=== PATIENT | male | born 1980 | race Caucasian/White ===

== ENCOUNTER 2018-01-03 23:59 | Emergency (ER) | payer BC ==
[~2018-01-03] VITALS: Ht 177.8 cm; Wt 93.0 kg
[~2018-01-03 23:59] MED LIST: DICL50TA3 PO; MAGICPED SWISH-SWAL; PERI0.126 SWISH-SPIT
[2018-01-04 00:34] VITALS: BP 140/89; PULSE 86; RESP 20; TEMP 98.5; O2SAT 98
[2018-01-04] MEDS ORDERED: MORPHINE SULFATE 4 MG/ML INJ IV PUSH ONE (01:00)
[2018-01-04] MEDS ORDERED: ONDANSETRON HCL 4 MG/2 ML VIAL IVP ONE (01:00)
[2018-01-04] MEDS ORDERED: SODIUM CHLORIDE 0.9% FLUSH 10 ML FLUSH IV FLUSH PRN (01:00)
[2018-01-04] MEDS ORDERED: KETOROLAC TROMETHAMINE 30 MG/ML (IVP) VIAL IVP ONE (01:00)
[2018-01-04 01:47] LABS: BASOPHIL # 0.1 TH/MM3 (0-0.2); BASOPHIL % 0.8 % (0.0-2.0); EOSINOPHIL # 0.2 TH/MM3 (0-0.4); EOSINOPHIL % 2.3 % (0.0-4.0); HEMATOCRIT 45.7 % (39.0-51.0); HEMOGLOBIN 15.4 GM/DL (13.0-17.0); LYMPH % 30.4 % (9.0-44.0); MEAN CELL VOLUME 81.5 FL (80.0-100.0); MEAN CORPUSCULAR HEMOGLOBIN 27.4 PG (27.0-34.0); MEAN CORPUSCULAR HGB CONC 33.6 % (32.0-36.0); MEAN PLATELET VOLUME 9.3 FL (7.0-11.0); MONO % 6.8 % (0.0-8.0); MONOCYTE # 0.5 TH/MM3 (0-0.9); NEUT % 59.7 % (16.0-70.0); PLATELET COUNT 160 TH/MM3 (150-450); RED BLOOD COUNT 5.61 MIL/MM3 (4.50-5.90); WHITE BLOOD COUNT 6.7 TH/MM3 (4.0-11.0)
[2018-01-04 02:01] LABS: ALBUMIN 3.9 GM/DL (3.4-5.0); ALT (GPT) 54 U/L (12-78); AST (GOT) 22 U/L (15-37); BICARBONATE 26.4 MEQ/L (21.0-32.0); BLOOD UREA NITROGEN 11 MG/DL (7-18); CALCIUM 8.5 MG/DL (8.5-10.1); CHLORIDE 109 MEQ/L (98-107); CREATININE 1.17 MG/DL (0.60-1.30); GLOMERULAR FILTRATION RATE 70 ML/MIN (>89); GLUCOSE,RANDOM 86 MG/DL (74-106); SODIUM (NA) 140 MEQ/L (136-145)
[2018-01-04 02:03] LABS: ALKALINE PHOSPHATASE 93 U/L (45-117); TOTAL BILIRUBIN ADULT 0.4 MG/DL (0.2-1.0)
--- NOTE | 2018-01-04 03:12 | RADRPT ---
EXAM DATE/TIME: 01/04/2018 02:26 [place] COMPARISON: No previous studies available for comparison. INDICATIONS : Right upper quadrant pain. MEDICAL HISTORY : Heart murmur. SURGICAL HISTORY : Gastrostomy. ENCOUNTER: Initial ACUITY: 1 day PAIN SCORE: 7/10 LOCATION: Right upper quadrant MEASUREMENTS: LIVER: 14.5 cm length COMMON DUCT: 7 mm RIGHT KIDNEY: 10.5 x 4.7 x 3.8 cm FINDINGS: Ultrasound of the upper abdomen demonstrates increased echogenicity of the liver compatible with fatt y infiltration or hepatocellular disease. The gallbladder is normal without wall thickening or perich olecystic fluid. The pancreas is not visualized secondary to overlying bowel gas. The right kidney is unremarkable. CONCLUSION: 1. Echogenic liver compatible with fatty infiltration or hepatocellular disease. 2. Nonvisualization of the pancreas 3. No evidence of cholelithiasis Ernesto Montalvo MD on January 04, 2018 at 3:09 Board Certified Radiologist. This report was verified electronically.
[2018-01-04] MEDS ORDERED: ESOM0.1C PO (03:25)
[2018-01-04] MEDS ORDERED: FAMO1TAB37 PO (03:29)
--- NOTE | 2018-01-04 03:29 | PD ---
HPI Chief Complaint: Abdominal Pain Time Seen by Provider: 00:54 Travel History International Travel<30 days: No Contact w/Intl Traveler<30days: No Traveled to known affect area: No History of Present Illness HPI The patient is 37-year-old male who arrives with complaint of abdominal pain since yesterday morning. Nausea is present. No vomiting. Oral intake 5 hours ago worsened abdominal pain. He reports history of appendicitis 25 years ago. No diarrhea. Occasional constipation. Positive flatus. He reports a similar episode occurred many years prior and was diagnosed as gallbladder polyps. [facility] Past Medical History Cardiovascular Problems: Yes (HEART MURMUR) Cerebrovascular Accident: Yes (AGE 15 ISCHEMIC ) Diminished Hearing: No Past Surgical History Abdominal Surgery: Yes (GASTROSTOMY) Eye Surgery: Yes (LT EYE SURGERY) Social History Alcohol Use: Yes (1 DRINK PER MONTH) Tobacco Use: No Substance Use: No Allergies-Medications (Allergen,Severity, Reaction): Coded Allergies: Sulfa (Sulfonamide Antibiotics) (Unverified Allergy, Intermediate, RASH, ) Uncoded Allergies: "CILLINS" (Allergy, Mild, 12/10/06) Reported Meds & Prescriptions Reported Meds & Active Scripts Active No Active Prescriptions or Reported Medications Review of Systems Except as stated in HPI: all other systems reviewed are Neg General / Constitutional: No: Fever Eyes: No: Blurred Vision Physical Exam Narrative GENERAL: 37-year-old male pleasant well-nourished well-developed Vital Signs Date Time Temp Pulse Resp B/P (MAP) Pulse Ox O2 Delivery O2 Flow Rate FiO2 01/04/18 00:34 98.5 86 20 140/89 (106) 98 SKIN: Warm and dry. HEAD: Atraumatic. Normocephalic. EYES: Pupils equal and round. No scleral icterus. No injection or drainage. ENT: No nasal bleeding or discharge. Mucous membranes pink and moist. NECK: Trachea midline. No JVD. CARDIOVASCULAR: Regular rate and rhythm. RESPIRATORY: No accessory muscle use. Clear to auscultation. Breath sounds equal bilaterally. GASTROINTESTINAL: Tenderness palpation of the right upper quadrant. Soft. No rebound or guarding. MUSCULOSKELETAL: Extremities without clubbing, cyanosis, or edema. No obvious deformities. NEUROLOGICAL: Awake and alert. No obvious cranial nerve deficits. Motor grossly within normal limits. Five out of 5 muscle strength in the arms and legs. Normal speech. PSYCHIATRIC: Appropriate mood and affect; insight and judgment normal. Data Data Last Documented VS Vital Signs Date Time Temp Pulse Resp B/P (MAP) Pulse Ox O2 Delivery O2 Flow Rate FiO2 01/04/18 00:34 98.5 86 20 140/89 (106) 98 Orders Orders Complete Blood Count With Diff (01/04/18 00:54) Comprehensive Metabolic Panel (01/04/18 00:54) Lipase (01/04/18 00:54) Us Abdomen Gallbladder (01/04/18 ) Iv Access Insert/Monitor (01/04/18 00:54) Ecg Monitoring (01/04/18 00:54) Oximetry (01/04/18 00:54) Morphine Inj (Morphine Inj) (01/04/18 01:00) Ondansetron Inj (Zofran Inj) (01/04/18 01:00) Sodium Chloride 0.9% Flush (Ns Flush) (01/04/18 01:00) Ketorolac Inj (Toradol Inj) (01/04/18 01:00) Labs Laboratory Tests Test 01/04/18 01:05 White Blood Count 6.7 TH/MM3 Red Blood Count 5.61 MIL/MM3 Hemoglobin 15.4 GM/DL Hematocrit 45.7 % Mean Corpuscular Volume 81.5 FL Mean Corpuscular Hemoglobin 27.4 PG Mean Corpuscular Hemoglobin Concent 33.6 % Red Cell Distribution Width 13.0 % Platelet Count 160 TH/MM3 Mean Platelet Volume 9.3 FL Neutrophils (%) (Auto) 59.7 % Lymphocytes (%) (Auto) 30.4 % Monocytes (%) (Auto) 6.8 % Eosinophils (%) (Auto) 2.3 % Basophils (%) (Auto) 0.8 % Neutrophils # (Auto) 4.0 TH/MM3 Lymphocytes # (Auto) 2.0 TH/MM3 Monocytes # (Auto) 0.5 TH/MM3 Eosinophils # (Auto) 0.2 TH/MM3 Basophils # (Auto) 0.1 TH/MM3 CBC Comment DIFF FINAL Differential Comment Blood Urea Nitrogen 11 MG/DL Creatinine 1.17 MG/DL Random Glucose 86 MG/DL Total Protein 7.0 GM/DL Albumin 3.9 GM/DL Calcium Level 8.5 MG/DL Alkaline Phosphatase 93 U/L Aspartate Amino Transf (AST/SGOT) 22 U/L Alanine Aminotransferase (ALT/SGPT) 54 U/L Total Bilirubin 0.4 MG/DL Sodium Level 140 MEQ/L Potassium Level 4.1 MEQ/L Chloride Level 109 MEQ/L Carbon Dioxide Level 26.4 MEQ/L Anion Gap 5 MEQ/L Estimat Glomerular Filtration Rate 70 ML/MIN Lipase 165 U/L MDM Medical Decision Making Medical Screen Exam Complete: Yes Emergency Medical Condition: Yes Medical Record Reviewed: Yes Differential Diagnosis Constipation, Gastritis, Acute Cholecystitis, Biliary Colic, Pancreatitis, ARNETT , Hepatitis, Bowel Obstruction, Cystitis, Mesenteric Ischemia, AAA, Appendicitis , Renal Stone/Hydronephrosis, GERD, perforated viscous Narrative Course CBC & BMP Diagram 01/04/18 01:05 Total Protein 7.0, Albumin 3.9, Calcium Level 8.5, Alkaline Phosphatase 93, Aspartate Amino Transf (AST/SGOT) 22, Alanine Aminotransferase (ALT/SGPT) 54, Total Bilirubin 0.4 Lipase normal US: fatty liver disease Diagnosis Primary Impression: RUQ pain Additional Impression: Nonalcoholic fatty liver disease Referrals: Christa Gaxiola MD 2 days Med/Other Pt SpecificInfo: Prescription(s) given Scripts Famotidine (Pepcid) 20 Mg Tab 20 MG PO BID, #60 TAB 0 Refills Prov: Fran Zuleta MD 01/04/[address] (Esomeprazole DR) 20 Mg Capdr 20 MG PO DAILY, #30 CAP 0 Refills Prov: Fran Zuleta MD 01/04/18 Disposition: 01 DISCHARGE HOME Condition: Stable Fran Zuleta MD Jan 04, 2018 03:29
[2018-01-04] MEDS ORDERED: ALUMINUM/MAGNESIUM/SIMETH 30 ML CUP PO ONE (03:30)
[2018-01-04] MEDS ORDERED: LIDOCAINE VISCOUS 2% SOLN 15 ML UDC PO ONE (03:30)
== END 2018-01-04 04:44 | disposition home or self-care (01) ==
LOC: NEPC 23:59
DX: R10.11 Right upper quadrant pain (principal); K76.0 Fatty (change of) liver, not elsewhere classified; R11.0 Nausea
CPT/HCPCS: 76705; 80053; 83690; 85025; 96374; 96375; 99285; J1885; J2270; J2405